=== PATIENT | female | born 1985 | race Two or more races ===

== ENCOUNTER 2024-03-05 09:15 | Inpatient (IN) | payer OTHER ==
[~2024-03-05] VITALS: Ht 160 cm; Wt 81.6 kg
[2024-03-05] MEDS ORDERED: NORETHIND-ETH1 EAC1 PO (16:40)
[2024-03-05 16:41] VITALS: BP 125/85
[2024-03-05] MEDS ORDERED: DICY20TA PO (16:41)
[2024-03-11] MEDS ORDERED: POVIDONE-IODINE 118 ML BOTT TOP ONE (07:15)
[2024-03-11] MEDS ORDERED: BUPIVACAINE HCL/MPF 0.5% 30ML VIAL ONE (07:15)
[2024-03-11] MEDS ORDERED: VISTASEAL DUAL APPICATOR 1 EACH APPL TOP ONE (07:15)
[2024-03-11] MEDS ORDERED: THROMBIN,HU/FIBRINOGEN/CALCIUM 10 ML SYRINGE TOP ONE (07:15)
[2024-03-11] MEDS ORDERED: LIDOCAINE HCL 1%/EPINEPHRINE 20ML VIAL IJ ONE (07:15)
[2024-03-11] MEDS ORDERED: METRONIDAZOLE/SODIUM CHLORIDE 500 MG/100 ML PIGGYBACK IV ONE (07:33)
[2024-03-11] MEDS ORDERED: CEFTRIAXONE SODIUM 2,000 MG VIAL ONE (07:33)
[2024-03-11] MEDS ORDERED: MORPHINE SULFATE 4 MG/ML CARTRIDGE IV PRN (15:15)
[2024-03-11] MEDS ORDERED: ONDANSETRON HCL 2 MG/ML VIAL IV PRN (15:15)
[2024-03-11] MEDS ORDERED: DEXTROSE 50 % IN WATER 0.5 G/ML DISP.SYRIN IV PRN (15:15)
[2024-03-11] MEDS ORDERED: OxyCODONE HCL 5 MG TABLET (ROXICODONE) PO PRN (15:15)
[2024-03-11] MEDS ORDERED: RINGERS SOLUTION,LACTATED 1,000 ML IV SCH (15:15)
[2024-03-11] MEDS ORDERED: MORPHINE SULFATE 4 MG/ML VIAL IV ONE (16:20)
[2024-03-11] MEDS ORDERED: METOCLOPRAMIDE HCL 5 MG/ML VIAL ONE (16:50)
[2024-03-11] MEDS ORDERED: HYOSCYAMINE SULFATE 0.125 MG TAB.SUBL SL SCH (17:00)
[2024-03-11] MEDS ORDERED: METOCLOPRAMIDE HCL 5 MG/ML VIAL IV SCH (17:00)
[2024-03-11] MEDS ORDERED: GABAPENTIN 300 MG CAPSULE PO SCH (17:00)
[2024-03-11] MEDS ORDERED: POLYETHYLENE GLYCOL 3350 17 GM BLIST.PACK PO SCH (17:00)
[2024-03-11 17:24] LABS: HEMOGLOBIN 11.5 g/dL (12.0-15.00); MEAN CELL VOLUME 78.3 fL (80.00-100.00); MEAN CORPUSCULAR HEMOGLOBIN 25.7 pg (27.00-32.0); MEAN CORPUSCULAR HGB CONC 32.8 g/dl (32.0-36.0); PLATELET COUNT 286 K/uL (150-450); RED BLOOD COUNT 4.48 M/uL (4.00-6.00)
[2024-03-11 17:38] VITALS: BP 125/85
[2024-03-11] MEDS ORDERED: ACETAMINOPHEN 500 MG GEL..CAP PO SCH (20:00)
[2024-03-11] MEDS ORDERED: FAMOTIDINE/PF 20 MG/2 ML VIAL IV PUSH SCH (21:00)
[2024-03-11] MEDS ORDERED: CELECOXIB 200 MG CAPSULE PO SCH (21:00)
[2024-03-12 00:01] VITALS: BP 119/56; O2SAT 99
[2024-03-12 06:26] LABS: HEMOGLOBIN 11.4 g/dL (12.0-15.00); MEAN CORPUSCULAR HEMOGLOBIN 25.8 pg (27.00-32.0); MEAN CORPUSCULAR HGB CONC 32.7 g/dl (32.0-36.0); PLATELET COUNT 292 K/uL (150-450); RED BLOOD COUNT 4.43 M/uL (4.00-6.00); RED CELL DISTRIBUTION WIDTH 15.3 % (11.5-14.5)
[2024-03-12 07:22] LABS: ALBUMIN 2.7 gm/dL (3.4-5.0); CALCIUM 8.3 mg/dL (8.5-10.1); CREATININE SERUM 0.88 mg/dL (0.55-1.02); GFR 72.71; MAGNESIUM 1.8 mg/dL (1.8-2.4); PHOSPHOROUS 3.5 mg/dL (2.5-4.9); POTASSIUM 4.62 mEq/L (3.5-5.1)
[2024-03-12 08:30] VITALS: BP 118/75; O2SAT 96
[2024-03-12] MEDS ORDERED: LACTOBACILLUS ACIDOPHILUS 1 CAP CAP PO SCH (09:00)
[2024-03-12 16:43] VITALS: BP 123/69; O2SAT 100
[2024-03-12] MEDS ORDERED: ENOXAPARIN SODIUM 40 MG/0.4 ML SYRINGE SUBCUTANEO SCH (17:00)
[2024-03-13 01:13] VITALS: BP 131/73; O2SAT 97
[2024-03-13] MEDS ORDERED: METOPROLOL TARTRATE 25 MG TABLET PO STA (06:53)
[2024-03-13 08:30] VITALS: BP 133/77; O2SAT 98
[2024-03-13] MEDS ORDERED: ENOXAPARIN SODIUM 40 MG/0.4 ML SYRINGE SUBCUTANEO SCH (09:00)
[2024-03-13 13:08] LABS: HEMOGLOBIN 10.2 g/dL (12.0-15.00); MEAN CELL VOLUME 80.9 fL (80.00-100.00); MEAN CORPUSCULAR HEMOGLOBIN 25.8 pg (27.00-32.0); MEAN CORPUSCULAR HGB CONC 31.9 g/dl (32.0-36.0); PLATELET COUNT 281 K/uL (150-450); RED BLOOD COUNT 3.95 M/uL (4.00-6.00); RED CELL DISTRIBUTION WIDTH 15.5 % (11.5-14.5)
[2024-03-13 14:49] LABS: CALCIUM 8.2 mg/dL (8.5-10.1); CREATININE SERUM 0.82 mg/dL (0.55-1.02); FREE TRIODOTIRONINE 2.68 pg/ml (2.18-3.98); GFR 78.88; MAGNESIUM 1.9 mg/dL (1.8-2.4); POTASSIUM 4.14 mEq/L (3.5-5.1); T4 TOTAL 11.09 UG/DL (4.8-13.9)
[2024-03-13 14:55] LABS: PHOSPHOROUS 1.7 mg/dL (2.5-4.9)
[2024-03-13 15:55] VITALS: BP 120/83; O2SAT 98
[2024-03-13] MEDS ORDERED: POTASSIUM PHOS,M-BASIC-D-BASIC 3 MM/ML VIAL IV ONE (16:00)
[2024-03-13] MEDS ORDERED: SOD FERRIC GLUC COMPLX/SUCROSE 62.5 MG in 0.9 % SODIUM CHLORIDE 50 ML IV SCH (17:26)
[2024-03-13] MEDS ORDERED: Cyanocobalamin/Mecobalamin 1 TAB.SL SL SCH (17:27)
[2024-03-13 17:58] LABS: BASE EXCESS -1.6 mmol/l
[2024-03-13] MEDS ORDERED: PIPERACILLIN/TAZOBACTAM SODIUM 3.375 GM in 0.9 % SODIUM CHLORIDE 100 ML IV SCH (18:00)
[2024-03-13 18:06] LABS: ABG PH 7.464 (7.35-7.45); ABG PO2 60.2 mmHg (80-100); ABG pCO2 29.9 mmHg (35-45); SaO2 92.2 %; Tco2 21.9 mmol/l
[2024-03-13 19:41] LABS: allen test SATISFACTORY; o2 21 %; puncture site RADIAL LEFT
[2024-03-13] MEDS ORDERED: ENOXAPARIN SODIUM 80 MG/0.8 ML SYRINGE SUBCUTANEO SCH (21:00)
[2024-03-13] MEDS ORDERED: PIPERACILLIN/TAZOBACTAM SODIUM 3.375 GM VIAL IV ONE (23:31)
[2024-03-14 00:15] VITALS: BP 137/65; O2SAT 100
[2024-03-14] MEDS ORDERED: PIPERACILLIN/TAZOBACTAM SODIUM 3.375 GM VIAL IV ONE ×2 (05:12→06:57)
[2024-03-14 08:16] LABS: HEMATOCRIT 29.1 % (36.0-45.00); HEMOGLOBIN 9.8 g/dL (12.0-15.00); MEAN CELL VOLUME 79.3 fL (80.00-100.00); MEAN CORPUSCULAR HEMOGLOBIN 26.6 pg (27.00-32.0); MEAN CORPUSCULAR HGB CONC 33.6 g/dl (32.0-36.0); PLATELET COUNT 283 K/uL (150-450); RED BLOOD COUNT 3.66 M/uL (4.00-6.00); RED CELL DISTRIBUTION WIDTH 15.5 % (11.5-14.5)
[2024-03-14 08:17] VITALS: BP 126/93; O2SAT 97
[2024-03-14 08:55] LABS: CALCIUM 7.9 mg/dL (8.5-10.1); CREATININE SERUM 0.79 mg/dL (0.55-1.02); GFR 82.35; MAGNESIUM 1.8 mg/dL (1.8-2.4); PHOSPHOROUS 2.3 mg/dL (2.5-4.9); POTASSIUM 3.79 mEq/L (3.5-5.1)
[2024-03-14] MEDS ORDERED: METOPROLOL TARTRATE 25 MG TABLET PO SCH (09:00)
[2024-03-14] MEDS ORDERED: CHOLESTYRAMINE/ASPARTAME LIGHT 4 G/PKT PACKET PO SCH (09:10)
[2024-03-14] MEDS ORDERED: FUROsemide 40 MG/4 ML VIAL IV NR (09:40)
[2024-03-14 16:00] VITALS: BP 140/80; O2SAT 100
[2024-03-14] MEDS ORDERED: ENOXAPARIN SODIUM 40 MG/0.4 ML SYRINGE SUBCUTANEO SCH (17:00)
[2024-03-15 00:28] VITALS: BP 134/83; O2SAT 100
[2024-03-15] MEDS ORDERED: METOPROLOL TARTRATE 50 MG TABLET PO ONE (00:59)
[2024-03-15] MEDS ORDERED: METOPROLOL TARTRATE 25 MG TABLET PO SCH (01:00)
[2024-03-15 08:02] VITALS: BP 137/95; O2SAT 99
[2024-03-15 11:07] LABS: CALCIUM 8.4 mg/dL (8.5-10.1); CREATININE SERUM 0.89 mg/dL (0.55-1.02); GFR 71.76; MAGNESIUM 1.8 mg/dL (1.8-2.4); POTASSIUM 4.04 mEq/L (3.5-5.1)
[2024-03-15 16:00] VITALS: BP 152/89; O2SAT 99
[2024-03-15] MEDS ORDERED: METOPROLOL TARTRATE 50 MG TABLET PO SCH (17:00)
[2024-03-16 00:50] VITALS: BP 140/85; O2SAT 100
[2024-03-16 08:00] VITALS: BP 157/58; O2SAT 100
[2024-03-16 09:13] LABS: ABG PH 7.443 (7.35-7.45); ABG PO2 76.7 mmHg (80-100); ABG pCO2 31.5 mmHg (35-45); BICARBONATE 21.1 mmol/l (23-25); SaO2 95.7 %
[2024-03-16 10:26] LABS: o2 21 %; puncture site RADIAL LEFT
[2024-03-16 10:27] LABS: allen test SATISFACTORY
== END 2024-03-16 09:57 | disposition home or self-care (01) | DRG 742 ==
LOC: O/R 03-11 05:13 → SURH 03-11 07:00 → OB/GYN 03-11 14:09 → SURG 03-11 19:27
PROVIDERS: Internal Medicine Geriatric Medicine; Specialist; Surgery; ADMIT Obstetrics & Gynecology Gynecology; ATTEND Obstetrics & Gynecology Gynecology
PROC: 0DBW4ZZ Excision of Peritoneum, Percutaneous Endoscopic Approach (ICD-10-PCS; 2024-03-11)
PROC: 0DTJ4ZZ Resection of Appendix, Percutaneous Endoscopic Approach (ICD-10-PCS; 2024-03-11)
PROC: 4A1BXSH Monitoring of Gastrointestinal Vascular Perfusion using Indocyanine Green Dye, External Approach (ICD-10-PCS; 2024-03-11)
PROC: 0DJD8ZZ Inspection of Lower Intestinal Tract, Via Natural or Artificial Opening Endoscopic (ICD-10-PCS; 2024-03-11)
PROC: 0T788DZ Dilation of Bilateral Ureters with Intraluminal Device, Via Natural or Artificial Opening Endoscopic (ICD-10-PCS; 2024-03-11)
PROC: 0UT24ZZ Resection of Bilateral Ovaries, Percutaneous Endoscopic Approach (ICD-10-PCS; principal; 2024-03-13)
PROC: 0UT94ZZ Resection of Uterus, Percutaneous Endoscopic Approach (ICD-10-PCS; 2024-03-13)
PROC: 0UT74ZZ Resection of Bilateral Fallopian Tubes, Percutaneous Endoscopic Approach (ICD-10-PCS; 2024-03-13)
PROC: 0TNB4ZZ Release Bladder, Percutaneous Endoscopic Approach (ICD-10-PCS; 2024-03-13)
PROC: 0DBP4ZZ Excision of Rectum, Percutaneous Endoscopic Approach (ICD-10-PCS; 2024-03-13)
PROC: 0UBG4ZZ Excision of Vagina, Percutaneous Endoscopic Approach (ICD-10-PCS; 2024-03-13)
PROC: 0DTN4ZZ Resection of Sigmoid Colon, Percutaneous Endoscopic Approach (ICD-10-PCS; 2024-03-13)
PROC: 0DBP4ZZ Excision of Rectum, Percutaneous Endoscopic Approach (ICD-10-PCS; 2024-03-13)
PROC: 0UN24ZZ Release Bilateral Ovaries, Percutaneous Endoscopic Approach (ICD-10-PCS; 2024-03-13)
PROC: 0DNN4ZZ Release Sigmoid Colon, Percutaneous Endoscopic Approach (ICD-10-PCS; 2024-03-13)
PROC: 0TN74ZZ Release Left Ureter, Percutaneous Endoscopic Approach (ICD-10-PCS; 2024-03-13)
PROC: 0TN64ZZ Release Right Ureter, Percutaneous Endoscopic Approach (ICD-10-PCS; 2024-03-13)
PROC: 4A033R1 Measurement of Arterial Saturation, Peripheral, Percutaneous Approach (ICD-10-PCS; 2024-03-13)
PROC: 4A12X4Z Monitoring of Cardiac Electrical Activity, External Approach (ICD-10-PCS; 2024-03-13)
PROC: BB24YZZ Computerized Tomography (CT Scan) of Bilateral Lungs using Other Contrast (ICD-10-PCS; 2024-03-13)
PROC: B246ZZZ Ultrasonography of Right and Left Heart (ICD-10-PCS; 2024-03-13)
PROC: B246ZZZ Ultrasonography of Right and Left Heart (ICD-10-PCS; 2024-03-13)
DX: N80.00 Endometriosis of the uterus, unspecified (principal); I97.191 Other postprocedural cardiac functional disturbances following other surgery; N80.03 Adenomyosis of the uterus; N80.02 Deep endometriosis of the uterus; N80.399 Endometriosis of the pelvic peritoneum, other specified sites, unspecified depth; N80.202 Endometriosis of left fallopian tube, unspecified depth; D27.1 Benign neoplasm of left ovary; N73.6 Female pelvic peritoneal adhesions (postinfective); N80.101 Endometriosis of right ovary, unspecified depth; N72 Inflammatory disease of cervix uteri; N80.4 Endometriosis of rectovaginal septum and vagina; Z20.822 Contact with and (suspected) exposure to COVID-19; N80.519 Endometriosis of the rectum, unspecified depth; N80.529 Endometriosis of the sigmoid colon, unspecified depth

== ENCOUNTER 2024-11-25 20:36 | Emergency (ER) | payer OTHER ==
[~2024-11-25] VITALS: Ht 160 cm; Wt 81.6 kg
[~2024-11-25 20:36] MED LIST: DICY20TA PO; NORETHIND-ETH1 EAC1 PO
[2024-11-25] MEDS ORDERED: 0.9 % SODIUM CHLORIDE 1,000 ML IV STA (23:45)
[2024-11-25] MEDS ORDERED: FAMOtidine 10 MG/ML (4ML VIAL) IV PUSH STA (23:50)
[2024-11-26] MEDS ORDERED: FAMOtidine 200mg/20ml VIAL ONE (00:03)
[2024-11-26 00:34] LABS: BASO % 0.6 % (0.1-1.2); EOS # 0.73 (0.04-0.54); EOS % 6.7 % (0.7-7.0); LYMPH # 2.87 (1.18-3.74); LYMPH % 26.3 % (19.3-53.1); MEAN CORPUSCULAR HEMOGLOBIN 25.2 pg (25.6-32.2); MONO # 0.97 (0.24-0.82); MONO % 8.9 % (4.7-12.5); NEUT # 6.24 (1.56-6.13); NEUT % 57.2 % (34.0-71.1); PLATELET COUNT 373 K/uL (163-369); RED BLOOD COUNT 5.15 M/uL (3.93-5.22); RED CELL DISTRIBUTION WIDTH 13.9 % (11.6-14.4)
[2024-11-26 00:56] LABS: ALBUMIN 3.8 gm/dL (3.4-5.0); BILIRUBIN TOTAL 0.46 mg/dL (0.3-1.2); CREATININE SERUM 0.89 mg/dL (0.55-1.02); GFR 71.37; GLOBULINA 5.2 G/DL (2.4-3.5); POTASSIUM 5.27 mEq/L (3.5-5.1)
[2024-11-26 02:40] LABS: COVID-19 AG NEGATIVE (NEGATIVE); INFLUENZA A AG NEGATIVE (NEGATIVE)
[2024-11-26] MEDS ORDERED: METRONIDAZOLE500 MG PO (07:19)
[2024-11-26] MEDS ORDERED: CIPRO500 MG PO (07:19)
[2024-11-26] MEDS ORDERED: QUESTRAN PACKET4 GM PO (07:19)
== END 2024-11-26 07:55 ==
LOC: ER 20:44
DX: R19.7 Diarrhea, unspecified (principal); Z20.822 Contact with and (suspected) exposure to COVID-19